=== PATIENT | female | born 1950 | race Caucasian/White ===

== ENCOUNTER → 2024-04-18 09:55 | Outpatient (REF) | payer MEDICARE, SELFPAY | LOC: HWRAD 09:55 | PROVIDERS: ATTENDING PHYSICIAN Nurse Practitioner Family | DX: M85.80 Other specified disorders of bone density and structure, unspecified site (principal); Z12.31 Encounter for screening mammogram for malignant neoplasm of breast; M81.0 Age-related osteoporosis without current pathological fracture | CPT/HCPCS: 77063; 77067 ==